=== PATIENT | female | born 1965 | race Caucasian/White ===

== ENCOUNTER → 2018-08-04 | Outpatient (CLI) | payer OTHER ==
[2018-08-10 14:07] LABS: COTININE None Detected (.); NICOTINE None Detected (.)
== END | disposition home or self-care (01) ==
LOC: LAB 10:54 → LAB SHORT 10:54
PROVIDERS: Surgery
DX: Z01.818 Encounter for other preprocedural examination (principal)
CPT/HCPCS: G0480

== ENCOUNTER 2020-08-30 09:57 | Day surgery (SDC) | payer OTHER ==
[~2020-08-30] VITALS: Ht 172.7 cm; Wt 108.4 kg
[2020-08-30] MEDS ORDERED: LIOT50 PO (10:29)
[2020-08-30] MEDS ORDERED: LEVOTHYROXINE200 MCG PO (10:30)
[2020-08-30] MEDS ORDERED: CYAN500 PO (10:31)
[2020-08-30] MEDS ORDERED: MULTI-VITAMIN1 EAC2 PO (10:31)
[2020-08-30] MEDS ORDERED: ALBU90OI6 INH (10:32)
[2020-08-30] MEDS ORDERED: IPRAT-ALBUT 0.5-3 ML INH (10:33)
== END 2020-08-30 12:08 | disposition home or self-care (01) ==
LOC: ORSCSDS 09:57
PROVIDERS: Surgery
PROC: 0DJD8ZZ Inspection of Lower Intestinal Tract, Via Natural or Artificial Opening Endoscopic (ICD-10-PCS; principal; 2020-08-30 11:30)
DX: R10.31 Right lower quadrant pain (principal); Z98.84 Bariatric surgery status; J45.909 Unspecified asthma, uncomplicated; F32.9 Major depressive disorder, single episode, unspecified; I10 Essential (primary) hypertension; E78.5 Hyperlipidemia, unspecified; G47.30 Sleep apnea, unspecified; E55.9 Vitamin D deficiency, unspecified; E03.9 Hypothyroidism, unspecified; F17.210 Nicotine dependence, cigarettes, uncomplicated; Z79.899 Other long term (current) drug therapy
CPT/HCPCS: J2704; J7120

== ENCOUNTER 2021-11-21 12:40 | Emergency (ER) | payer OTHER ==
[~2021-11-21] VITALS: Ht 172.7 cm; Wt 122.5 kg
[~2021-11-21 12:40] MED LIST: ALBU90OI6 INH; CYAN500 PO; IPRAT-ALBUT 0.5-3 ML INH; LEVOTHYROXINE200 MCG PO; LIOT50 PO; MULTI-VITAMIN1 EAC2 PO
[2021-11-21 13:27] LABS: BASOPHILS ABSOLUTE AUTO 0.06 K/mm3 (0.00-0.23); BASOPHILS PERCENT AUTO 1 % (0-2); EOSINOPHILS ABSOLUTE AUTO 0.23 K/mm3 (0.00-0.68); EOSINOPHILS PERCENT AUTO 3 % (0-6); Hematocrit 41.6 % (33.0-51.0); Hemoglobin 13.8 g/dL (11.5-16.0); IMMATURE GRAN ABSOLUTE AUTO 0.05 K/mm3 (0.00-0.10); IMMATURE GRAN PERCENT AUTO 1 % (0-1); LYMPHOCYTES ABSOLUTE AUTO 2.23 K/mm3 (0.84-5.20); LYMPHOCYTES PERCENT AUTO 26 % (21-46); MONOCYTES ABSOLUTE AUTO 0.74 K/mm3 (0.16-1.47); MONOCYTES PERCENT AUTO 9 % (4-13); Mean Corpuscular HGB 27.5 pg (26.0-34.0); Mean Corpuscular HGB Conc 33.2 g/dL (31.5-36.5); Mean Corpuscular Volume 83 fL (80-100); Mean Platelet Volume 11.2 fL (9.1-12.4); NEUTROPHILS ABSOLUTE AUTO 5.37 K/mm3 (1.96-9.15); NEUTROPHILS PERCENT AUTO 62 % (41-73); Platelet Count 202 K/mm3 (150-400); RDW Coefficient Variation 13.1 % (11.7-14.2); RDW Standard Deviation 39.1 fL (35.1-46.3); Red Blood Cell Count 5.01 M/mm3 (3.80-5.20); White Blood Cell Count 8.68 K/mm3 (4.00-11.30)
[2021-11-21 13:59] LABS: Albumin, Blood 3.1 g/dL (3.4-5.0); Albumin/Globulin Ratio 0.8 (0.8-1.8); Bilirubin, Total 0.2 mg/dL (0.1-1.0); Bun/Creatinine Ratio 23.3 (12.0-20.0); Calcium, Blood 8.9 mg/dL (8.5-10.1); Creatinine, Blood 0.51 mg/dL (0.40-1.00); Globulin, Blood 3.8 g/dL (2.2-4.0); Potassium, Blood 4.3 mmol/L (3.5-5.5); Total Protein, Blood 6.9 g/dL (6.4-8.2)
== END 2021-11-21 16:45 | disposition home or self-care (01) ==
LOC: ER 12:40
PROVIDERS: Student in an Organized Health Care Education/Training Program
DX: R00.2 Palpitations (principal); M79.602 Pain in left arm; S46.912A Strain of unspecified muscle, fascia and tendon at shoulder and upper arm level, left arm, initial encounter; F17.210 Nicotine dependence, cigarettes, uncomplicated; Z79.899 Other long term (current) drug therapy; Z91.040 Latex allergy status; Z88.5 Allergy status to narcotic agent; Z91.09 Other allergy status, other than to drugs and biological substances; X58.XXXA Exposure to other specified factors, initial encounter
CPT/HCPCS: 36415; 71045; 80053; 84484; 85025; 93005; 93010; 93246; 99285-25

== ENCOUNTER 2022-10-26 16:33 | Emergency (ER) | payer OTHER ==
[~2022-10-26] VITALS: Ht 172.7 cm; Wt 136.1 kg
[2022-10-26 16:46] VITALS: BP 147/108
[2022-10-26 17:18] LABS: BASOPHILS ABSOLUTE AUTO 0.08 K/mm3 (0.00-0.23); BASOPHILS PERCENT AUTO 1 % (0-2); EOSINOPHILS ABSOLUTE AUTO 0.21 K/mm3 (0.00-0.68); EOSINOPHILS PERCENT AUTO 2 % (0-6); Hematocrit 43.2 % (33.0-51.0); Hemoglobin 14.5 g/dL (11.5-16.0); IMMATURE GRAN ABSOLUTE AUTO 0.05 K/mm3 (0.00-0.10); IMMATURE GRAN PERCENT AUTO 0 % (0-1); LYMPHOCYTES ABSOLUTE AUTO 2.08 K/mm3 (0.84-5.20); LYMPHOCYTES PERCENT AUTO 16 % (21-46); MONOCYTES ABSOLUTE AUTO 1.03 K/mm3 (0.16-1.47); MONOCYTES PERCENT AUTO 8 % (4-13); Mean Corpuscular HGB Conc 33.6 g/dL (31.5-36.5); Mean Corpuscular Volume 83 fL (80-100); Mean Platelet Volume 11.6 fL (9.1-12.4); NEUTROPHILS ABSOLUTE AUTO 9.33 K/mm3 (1.96-9.15); NEUTROPHILS PERCENT AUTO 73 % (41-73); Platelet Count 203 K/mm3 (150-400); RDW Coefficient Variation 12.8 % (11.7-14.2); RDW Standard Deviation 38.7 fL (35.1-46.3); Red Blood Cell Count 5.18 M/mm3 (3.80-5.20); White Blood Cell Count 12.78 K/mm3 (4.00-11.30)
[2022-10-26 17:45] LABS: Albumin, Blood 3.3 g/dL (3.4-5.0); Albumin/Globulin Ratio 0.9 (0.8-1.8); Bilirubin, Total 0.4 mg/dL (0.1-1.0); Bun/Creatinine Ratio 14.9 (12.0-20.0); Calcium, Blood 8.9 mg/dL (8.5-10.1); Creatinine, Blood 0.67 mg/dL (0.40-1.00); Globulin, Blood 3.8 g/dL (2.2-4.0); Potassium, Blood 3.9 mmol/L (3.5-5.5); Total Protein, Blood 7.1 g/dL (6.4-8.2)
[2022-10-26] MEDS ORDERED: CEPH500 PO (18:38)
== END 2022-10-26 19:13 | disposition home or self-care (01) ==
LOC: ER 16:33
PROVIDERS: Student in an Organized Health Care Education/Training Program
DX: L03.115 Cellulitis of right lower limb (principal); F17.210 Nicotine dependence, cigarettes, uncomplicated; Z88.8 Allergy status to other drugs, medicaments and biological substances; Z88.5 Allergy status to narcotic agent; Z91.048 Other nonmedicinal substance allergy status; Z79.899 Other long term (current) drug therapy
CPT/HCPCS: 10061; 80053; 85025; 99283-25

== ENCOUNTER 2023-06-30 10:58 | Inpatient (IN) | payer OTHER ==
[~2023-06-30] VITALS: Ht 172.7 cm; Wt 145.2 kg
[~2023-06-30 10:58] MED LIST changes: +CEPH500 PO
[2023-06-30 12:33] LABS: BASOPHILS ABSOLUTE AUTO 0.06 K/mm3 (0.00-0.23); BASOPHILS PERCENT AUTO 1 % (0-2); EOSINOPHILS ABSOLUTE AUTO 0.22 K/mm3 (0.00-0.68); EOSINOPHILS PERCENT AUTO 3 % (0-6); Hematocrit 43.4 % (33.0-51.0); Hemoglobin 14.2 g/dL (11.5-16.0); IMMATURE GRAN ABSOLUTE AUTO 0.06 K/mm3 (0.00-0.10); IMMATURE GRAN PERCENT AUTO 1 % (0-1); LYMPHOCYTES ABSOLUTE AUTO 1.97 K/mm3 (0.84-5.20); LYMPHOCYTES PERCENT AUTO 23 % (21-46); MONOCYTES ABSOLUTE AUTO 0.63 K/mm3 (0.16-1.47); MONOCYTES PERCENT AUTO 7 % (4-13); Mean Corpuscular HGB Conc 32.7 g/dL (31.5-36.5); Mean Corpuscular Volume 85 fL (80-100); Mean Platelet Volume 11.3 fL (9.1-12.4); NEUTROPHILS ABSOLUTE AUTO 5.78 K/mm3 (1.96-9.15); NEUTROPHILS PERCENT AUTO 66 % (41-73); Platelet Count 168 K/mm3 (150-400); RDW Coefficient Variation 13.2 % (11.7-14.2); RDW Standard Deviation 41.3 fL (35.1-46.3); Red Blood Cell Count 5.08 M/mm3 (3.80-5.20); White Blood Cell Count 8.72 K/mm3 (4.00-11.30)
[2023-06-30 12:38] LABS: Influenza A, PCR NEGATIVE (NEGATIVE); Influenza B, PCR NEGATIVE (NEGATIVE); Resp Syncytial Virus, PCR NEGATIVE (NEGATIVE); SARS-Cov-2 (COVID-19) PCR, MMC NEGATIVE (NEGATIVE)
[2023-06-30 12:50] LABS: Albumin/Globulin Ratio 0.9 (0.8-1.8); Bilirubin, Total 0.2 mg/dL (0.1-1.0); Bun/Creatinine Ratio 15.2 (12.0-20.0); Calcium, Blood 8.1 mg/dL (8.5-10.1); Creatinine, Blood 0.53 mg/dL (0.40-1.00); Globulin, Blood 3.5 g/dL (2.2-4.0); Potassium, Blood 4.2 mmol/L (3.5-5.5); Total Protein, Blood 6.5 g/dL (6.4-8.2)
[2023-06-30] MEDS ORDERED: ALLEGRA ALLERG180 MG PO (13:37)
[2023-06-30 13:39] LABS: Base Excess Venous 4.3 mmol/L; Bicarbonate Venous 27.2 mmol/L (24.0-30.0); PCO2 Venous 51.6 mmHg (38-42); pH Blood Venous 7.37 (7.34-7.37)
[2023-06-30 16:47] VITALS: BP 144/63
--- NOTE | 2023-06-30 17:33 | NUR ---
UPDATE PT ABLE TO TRANSFER FROM ER [facility] TO BED INDEPENDENTLY. BP STABLE. HR NSR IN THE LOW 90'S. O2 SATS ABOVE 90% ON RA, BUT RR IN THE MID 20'S. PT STATES HER BREATHING HAS IMPROVED SINCE ARRIVAL TO ED. PT COMPLAINS OF COUGH AND HEADACHE. PT MEDICATED PER EMAR FOR BOTH. PT REQUESTING A SNACK SOON SHE ARRIVES TO THE FLOOR. PT ORIENTED TO ROOM AND UNIT. FRIEND AT BEDSIDE. BIPAP IN THE ROOM FOR RESCUE IF PATIENT NEEDS IT. WILL CONTINUE TO MONITOR AND REPORT TO ONCOMING RN
[2023-06-30 19:30] VITALS: BP 138/56
--- NOTE | 2023-06-30 19:35 | NUR ---
ASSUMPTION OF CARE: PATIENT IS RESTING IN BED WITH EXPIRATORY WHEEZES, BIPAP CURRENTLY OFF PATIENT WITH FROTHY WHITE SPUTUM WHILE SLEEPING. DENIES CHEST PAIN PRESSURE OR SOB, MINOR ABD PAIN ACUTE ON CHRONIC FROM COUGHING AND PREVIOUS MULITPLE ABD SURGERIES. SPO2 > 92% ON RA CURRENTLY. NORMOTENSIVE, STRICT I/O INCENTIVE SPIROMETRY EDUCATION AND GIVEN. BLE LOWER EXTREMITY EDEMA NOTED. PATIENT CONCERNS WITH BREATHING, HOWEVER WAS TRYING TO REFUSE BREATHING TREATMENT, AND BIPAP, EDUCATION PROVIDED. ONLY CONCERN IF DIURETICS WERE GIVEN. PATIENT ENDORSES MED REC COMPLETE AND TYPICALLY TAKES, WILL DOUBLE CHECK LAST ADMINISTRATION.
[2023-07-01 00:44] VITALS: BP 147/76
[2023-07-01 04:17] LABS: BASOPHILS ABSOLUTE AUTO 0.03 K/mm3 (0.00-0.23); BASOPHILS PERCENT AUTO 0 % (0-2); EOSINOPHILS PERCENT AUTO 0 % (0-6); Hematocrit 42.7 % (33.0-51.0); Hemoglobin 14.3 g/dL (11.5-16.0); IMMATURE GRAN ABSOLUTE AUTO 0.18 K/mm3 (0.00-0.10); IMMATURE GRAN PERCENT AUTO 1 % (0-1); LYMPHOCYTES ABSOLUTE AUTO 1.09 K/mm3 (0.84-5.20); LYMPHOCYTES PERCENT AUTO 7 % (21-46); MONOCYTES ABSOLUTE AUTO 0.17 K/mm3 (0.16-1.47); MONOCYTES PERCENT AUTO 1 % (4-13); Mean Corpuscular HGB 28.3 pg (26.0-34.0); Mean Corpuscular HGB Conc 33.5 g/dL (31.5-36.5); Mean Corpuscular Volume 85 fL (80-100); Mean Platelet Volume 11.3 fL (9.1-12.4); NEUTROPHILS ABSOLUTE AUTO 13.19 K/mm3 (1.96-9.15); NEUTROPHILS PERCENT AUTO 90 % (41-73); Platelet Count 195 K/mm3 (150-400); RDW Coefficient Variation 13.2 % (11.7-14.2); RDW Standard Deviation 40.3 fL (35.1-46.3); Red Blood Cell Count 5.05 M/mm3 (3.80-5.20); White Blood Cell Count 14.66 K/mm3 (4.00-11.30)
[2023-07-01 04:26] VITALS: BP 155/86
[2023-07-01 04:39] LABS: Albumin/Globulin Ratio 0.8 (0.8-1.8); Bilirubin, Total 0.2 mg/dL (0.1-1.0); Bun/Creatinine Ratio 32.5 (12.0-20.0); Calcium, Blood 8.4 mg/dL (8.5-10.1); Creatinine, Blood 0.4 mg/dL (0.40-1.00); Globulin, Blood 3.8 g/dL (2.2-4.0); Potassium, Blood 4.3 mmol/L (3.5-5.5); Total Protein, Blood 6.8 g/dL (6.4-8.2)
--- NOTE | 2023-07-01 06:28 | NUR ---
EOS: NO CHANGES FROM ASSUMPTION OF CARE MINUS. DECREASED BIPAP SETTINGS, WORE MOST OF THE NIGHT.
[2023-07-01 07:09] VITALS: BP 153/84
--- NOTE | 2023-07-01 07:46 | NUR ---
NURSING PCU DAYSHIFT: Assumed care of pt at approx 0700. A/O, pleasant, cooperative w/care. Enjoys engaging in conversation w/staff and family/friends on the phone. C/O mild discomfort in ribs r/t cough. Skin intact, no breakdown noted. Ambulates independently and w/o difficulty. Tele in place, NSR, HR 70, no c/o CP/pressure, SBP 153 prior to a.m. meds, trace BLE edema. L/S w/exp wheezes t/o, coarse upper airways with diminished and tight bases, respirations rapid and shallow at times, harsh cough producing stringy/frothy clear and white sputum, dyspnea w/exertion and excessive conversations, O2 sat mid 90's on 3L NC, uses bipap during periods of rest w/settings of 10/5 and 25%. Abd distended which pt states is normal, c/o "new hernia" to R abd w/frequent cough, BT+, voiding w/o difficulty though expresses urgency. 20g PIV to LFA, s/l w/abx as scheduled. No s/s of acute distress this a.m. Discussed plan of care, pt unsure if ready for discharge home today. I/S at bedside, verbalized and demonstrated understanding of use. Sitting up in bed waiting for breakfast, denies any current needs/questions. Call light in reach, awaiting rounding from PMD, cont to monitor for any changes.
[2023-07-01 15:32] VITALS: BP 175/76
--- NOTE | 2023-07-01 17:03 | NUR ---
NURSING PCU DAYSHIFT SUMMARY: Pt has done well t/o the shift though continues to experience dyspnea w/minimal exertion. Requested NC for comfort, decreased to 1L NC maintaining O2 sat mid 90's. Continues to have a cough producing white/clear frothy sputum. RT at bedside t/o shift, breathing tx's administered as needed, CPAP setup for tx tonight. C/O heartburn, tx w/Tums as ordered and warm tea w/snacks per pt request. Pt appears comfortable at this time, sitting up in bed and watching Netflix on phone. Denies any current questions/needs, cont to monitor until rpt is given to NOC RN.
[2023-07-01 20:16] VITALS: BP 160/76
[2023-07-01 23:56] VITALS: BP 120/66
[2023-07-02 04:03] VITALS: BP 136/62
[2023-07-02 04:46] LABS: BASOPHILS ABSOLUTE AUTO 0.05 K/mm3 (0.00-0.23); BASOPHILS PERCENT AUTO 0 % (0-2); EOSINOPHILS PERCENT AUTO 0 % (0-6); Hematocrit 41.7 % (33.0-51.0); Hemoglobin 14.1 g/dL (11.5-16.0); IMMATURE GRAN ABSOLUTE AUTO 0.31 K/mm3 (0.00-0.10); IMMATURE GRAN PERCENT AUTO 2 % (0-1); LYMPHOCYTES ABSOLUTE AUTO 1.18 K/mm3 (0.84-5.20); LYMPHOCYTES PERCENT AUTO 6 % (21-46); MONOCYTES ABSOLUTE AUTO 0.71 K/mm3 (0.16-1.47); MONOCYTES PERCENT AUTO 3 % (4-13); Mean Corpuscular HGB 28.6 pg (26.0-34.0); Mean Corpuscular HGB Conc 33.8 g/dL (31.5-36.5); Mean Corpuscular Volume 85 fL (80-100); Mean Platelet Volume 11.5 fL (9.1-12.4); NEUTROPHILS ABSOLUTE AUTO 18.91 K/mm3 (1.96-9.15); NEUTROPHILS PERCENT AUTO 89 % (41-73); Platelet Count 200 K/mm3 (150-400); RDW Coefficient Variation 13.3 % (11.7-14.2); RDW Standard Deviation 40.7 fL (35.1-46.3); Red Blood Cell Count 4.93 M/mm3 (3.80-5.20); White Blood Cell Count 21.16 K/mm3 (4.00-11.30)
--- NOTE | 2023-07-02 05:25 | NUR ---
SHIFT SUMMARY A/Ox4 AND COOPERATIVE WITH CARE. ANSWERS QUESTIONS APPROPRIATELY AND ABLE TO MAKE HER NEEDS KNOWN. CAN HAVE EPISODES OF MILD ANXIETY, BUT IS ABLE TO CALM HERSELF DOWN USING BREATHING TECHNIQUES. CARDIAC, IS MED STATUS WITH NO TELE, BUT DENIES ANY CP OR PRESSURE DURING THE NIGHT. SBP HAS BEEN STABLE RANGING 120-150'S. RESPIRATORY, MAINTAINS SPO2 88-94% ON CPAP WITH A PRESSURE OF 10 AND W/21-26% FiO2 DURING THE NIGHT. ABLE TO SELF TRANSITION BETWEEN RA-3L NEEDED. MODERATE INCREASE IN WORK OF BREATHING NOTED WITH MINIMAL EXERTION, BUT IS ABLE TO RECOVER WELL. PRODUCTIVE COUGH NOTED WITH THICK/FROTHY, WHITE SPUTUM. PT IS ABLE TO SELF SUCTION. GI/, ABLE TO INDEPENDENTLY AMBULATE TO BATHROOM TO VOID AZAEL COLORED URINE. RUQ APPEARS DISTENDED WITH NOTICEABLE BULGE AND PAIN REPORTED WITH COUGHING. PT REPORTS HX OF ABD HERNIA WELL HERNIA REPAIR. MD AWARE PER DAY SHIFT REPORT. DENIES N/V THROUGHOUT THE NIGHT. PLANS FOR D/C THIS AM. ASSESSED PT FOR RISKS OF ANY IGNITION SOURCES WELL BEHAVIORS FOR INCREASED RISKS OF FIRE DANGER. PT EDUCATED ON COMMON SOURCES OF IGNITION WELL NEED TO KEEP A SAFE ENVIRONMENT. PT VOICED UNDERSTANDING. NO NEW ORDERS AT THIS TIME, WILL REPORT TO ONCOMING RN. MELODY ESTRADA OF THIS NOTE
[2023-07-02 05:28] LABS: Calcium, Blood 9.3 mg/dL (8.5-10.1); Creatinine, Blood 0.53 mg/dL (0.40-1.00); Potassium, Blood 4.1 mmol/L (3.5-5.5)
[2023-07-02 07:27] VITALS: BP 152/91
--- NOTE | 2023-07-02 10:33 | NUR ---
AM NOTES; DR TOLENTINO CAME BY AND SAW PT THIS MORNING PT WAS KEPT NPO SINCE AFTER MIDNIGHT FOR POSS REPEAT ANGIO TODAY. VITALS HAS BEEN STABLE HRR SR 90'S, SBP'S 150'S, SATS ABOVE 92% ON RA, AFEBRILE. PT DENIES ANY CHEST PAIN/PRESSURE OR ANY KIND OF DISCOMFORT. PT A&OX4, CALLS APPROPRIATELY SBA FOR TRANSFERS. LEFT RADIAL SITE WITH TRANSPARENT DRESSING CDI. NO OTHER ISSUES REPORTED AT THIS TIME CALL LIGHTS IN REACH WILL CONTINUE TO MONITOR
[2023-07-02 15:54] VITALS: BP 160/85
--- NOTE | 2023-07-02 18:35 | NUR ---
PT SUMMARY: NO ACUTE CHANGE FOR THE SHIFT. PT HAS REMAINED MEDICAL STATUS NO TELE. PT HAS BEEN AMBULATING TO THE BATHROOM INDEPENDENTLY, SOB WITH EXERTION HOME O2 EVAL DONE PT REQUIRING 2L OF O2 WITH EXERTION RA AT REST, CPAP MACHINE, O2 TANKS, NEB MACHINE ORDERED ALREADY BY DIRECTOR OF OUTPATIENT SERVICESLUSTER APPLICATOR O2 DELIVERED IN THE ROOM TODAY. PT TO POSSIBLY DC TOMORROW IF STABLE. PT TRANSITIONED TO PO STEROIDS TODAY, PT STILL HAS COUGHING EPISODES WHITE THIN SPUTUM PT ABLE TO USE SUCTION AT BEDSIDE. PT HAS SOME TRACE EDEMA ON BLE, PT ABLE TO ELEVATE LEGS UP IN PILLOWS. TOLERATING PO INTAKE AND DIET. PT C/O POSS CONSTIPATION PRUNE JUICE GIVEN AWATING FOR RESULT. VITALS HAS BEEN STABLE. NO CHEST PAIN/PRESSURE. PT HAS BEEN CALLING APPROPRIATELY. CALL LIGHTS IN REACH WILL REPORT TO ONCOMING SHIFT
[2023-07-02 19:54] VITALS: BP 156/86
[2023-07-03 03:47] VITALS: BP 151/83
[2023-07-03 05:09] LABS: BASOPHILS ABSOLUTE AUTO 0.03 K/mm3 (0.00-0.23); BASOPHILS PERCENT AUTO 0 % (0-2); EOSINOPHILS ABSOLUTE AUTO 0.01 K/mm3 (0.00-0.68); EOSINOPHILS PERCENT AUTO 0 % (0-6); Hematocrit 41.3 % (33.0-51.0); Hemoglobin 13.6 g/dL (11.5-16.0); IMMATURE GRAN ABSOLUTE AUTO 0.25 K/mm3 (0.00-0.10); IMMATURE GRAN PERCENT AUTO 2 % (0-1); LYMPHOCYTES ABSOLUTE AUTO 2.52 K/mm3 (0.84-5.20); LYMPHOCYTES PERCENT AUTO 15 % (21-46); MONOCYTES PERCENT AUTO 7 % (4-13); Mean Corpuscular HGB Conc 32.9 g/dL (31.5-36.5); Mean Corpuscular Volume 85 fL (80-100); Mean Platelet Volume 11.6 fL (9.1-12.4); NEUTROPHILS ABSOLUTE AUTO 12.92 K/mm3 (1.96-9.15); NEUTROPHILS PERCENT AUTO 77 % (41-73); Platelet Count 196 K/mm3 (150-400); RDW Coefficient Variation 13.4 % (11.7-14.2); RDW Standard Deviation 41.5 fL (35.1-46.3); Red Blood Cell Count 4.85 M/mm3 (3.80-5.20); White Blood Cell Count 16.83 K/mm3 (4.00-11.30)
--- NOTE | 2023-07-03 05:17 | NUR ---
SHIFT SUMMARY A/Ox4 AND COOPERATIVE WITH CARE. ANSWERS QUESTIONS APPROPRIATELY AND ABLE TO MAKE HER NEEDS KNOWN. NO ACUTE EVENTS OVER NIGHT FOR PT WAS ABLE TO GET INTERMITTENT EPISODES OF SLEEP. CARDIAC, IS MED STATUS WITH NO TELE, BUT DENIES ANY CP OR PRESSURE DURING THE NIGHT. SBP HAS BEEN STABLE RANGING 120-150'S. RESPIRATORY, MAINTAINS SPO2 88-94% ON CPAP WITH A PRESSURE OF 10 AND W/25% FiO2 DURING THE NIGHT. ABLE TO SELF TRANSITION BETWEEN RA-3L NEEDED. MODERATE INCREASE IN WORK OF BREATHING NOTED WITH MINIMAL EXERTION, BUT IS ABLE TO RECOVER WELL. PRODUCTIVE COUGH NOTED WITH THICK/FROTHY, WHITE SPUTUM. PT IS ABLE TO SELF SUCTION. PT CAN REMAIN ON RA WHILE AT REST FOR SOME TIME BEFORE NEEDING SUPPLEMENTAL O2 FOR RECOVERY. GI/, ABLE TO INDEPENDENTLY AMBULATE TO BATHROOM TO VOID AZAEL COLORED URINE. CONTINUES TO REPORT ABD PAIN WITH COUGHING. TESSALON PERLES GIVEN PER EMAR. DENIES N/V THROUGHOUT THE NIGHT. PLANS FOR D/C THIS AM. PAIN MANAGED PER EMAR. ASSESSED PT FOR RISKS OF ANY IGNITION SOURCES WELL BEHAVIORS FOR INCREASED RISKS OF FIRE DANGER. PT EDUCATED ON COMMON SOURCES OF IGNITION WELL NEED TO KEEP A SAFE ENVIRONMENT. PT VOICED UNDERSTANDING. NO NEW ORDERS AT THIS TIME, WILL REPORT TO ONCOMING RN. MELODY ESTRADA OF THIS NOTE
[2023-07-03 05:32] LABS: Bun/Creatinine Ratio 40.6 (12.0-20.0); Calcium, Blood 8.9 mg/dL (8.5-10.1); Creatinine, Blood 0.57 mg/dL (0.40-1.00); Potassium, Blood 3.9 mmol/L (3.5-5.5)
[2023-07-03 08:24] VITALS: BP 143/86
--- NOTE | 2023-07-03 10:03 | NUR ---
CARE ASSUMPTION this rn assumed care at 0700. vital signs stable. medical no tele. patient is alert and oriented x4. perrla. patient is able to make needs known and uses call light appropriately. patient is independent in adls. patient reports no pain, chest pain/pressure or shortness of breath. see shift assessment for further details. patient is on room air when at rest, but with activity is requiring 2l nc of oxygen. patient has expiratory tight wheeze in middle and lower lobes. plan of care is up to date at this time.
[2023-07-03] MEDS ORDERED: HYDCHL25 PO (12:17)
[2023-07-03] MEDS ORDERED: LISI20 PO (12:17)
[2023-07-03] MEDS ORDERED: Prednisone20 MG PO (12:18)
[2023-07-03] MEDS ORDERED: FLUT1DIS5 INH (12:22)
[2023-07-03] MEDS ORDERED: BENZ100A PO (12:22)
--- NOTE | 2023-07-03 12:56 | NUR ---
discharge this rn went over discharge education with the patient. patient verbalized understanding. medications faxed to [facility]. patient left with all belongings and in no distress. patient left with home oxygen. patient left in no distress.
== END 2023-07-03 12:42 | disposition home or self-care (01) | DRG 189 ==
LOC: ER 10:58 → PCU 13:47
PROVIDERS: Physician Assistant; Student in an Organized Health Care Education/Training Program; ADMIT Internal Medicine
PROC: 5A09357 Assistance with Respiratory Ventilation, Less than 24 Consecutive Hours, Continuous Positive Airway Pressure (ICD-10-PCS; principal; 2023-06-30)
DX: J96.01 Acute respiratory failure with hypoxia (principal); J44.1 Chronic obstructive pulmonary disease with (acute) exacerbation; Z68.42 Body mass index [BMI] 45.0-49.9, adult; I10 Essential (primary) hypertension; E03.9 Hypothyroidism, unspecified; F17.210 Nicotine dependence, cigarettes, uncomplicated; G47.33 Obstructive sleep apnea (adult) (pediatric); E66.9 Obesity, unspecified; M79.7 Fibromyalgia; E78.5 Hyperlipidemia, unspecified; F32.A Depression, unspecified; Z91.048 Other nonmedicinal substance allergy status; Z88.5 Allergy status to narcotic agent; Z91.040 Latex allergy status; Z79.899 Other long term (current) drug therapy; Z98.890 Other specified postprocedural states; Z79.890 Hormone replacement therapy; Z87.19 Personal history of other diseases of the digestive system; Z11.52 Encounter for screening for COVID-19; Z79.51 Long term (current) use of inhaled steroids; Z79.2 Long term (current) use of antibiotics
CPT/HCPCS: 0241U; 36415; 71045; 80048; 80053; 82803; 83735; 83880; 84145; 85025; 90471; 93005; 93010; 93306; 94640; 94644; 94645; 94660; 94664; 94761; 94762; 96361; 96365; 96375; 99285-25; A9270; J0456; J1650; J1885; J2765; J2930; J7030; J7050; J7512; Q2036